=== PATIENT | male | born 1955 | race Caucasian/White ===

== ENCOUNTER 2017-02-03 22:33 | Emergency (ER) | payer OTHER ==
[~2017-02-03] VITALS: Ht 175.3 cm; Wt 70.0 kg
[~2017-02-03 22:33] MED LIST: GABA300C5 PO
[2017-02-03] MEDS ORDERED: SODIUM CHLORIDE 0.9% FLUSH 5 ML FLUSH IVF PRN (22:45)
[2017-02-03 22:47] VITALS: BP 147/81; PULSE 81; RESP 18; TEMP 97.6; O2SAT 99
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
[2017-02-03 23:09] LABS: BASOPHIL # 0.1 TH/MM3 (0-0.2); BASOPHIL % 0.8 % (0.0-2.0); EOSINOPHIL % 0.6 % (0.0-4.0); HEMATOCRIT 41.1 % (39.0-51.0); HEMO FLAGS DIFF FINAL; LYMPH % 43.9 % (9.0-44.0); LYMPHOCYTE # 2.9 TH/MM3 (1.0-4.8); MEAN CELL VOLUME 83.4 FL (80.0-100.0); MEAN CORPUSCULAR HEMOGLOBIN 28.3 PG (27.0-34.0); NEUT % 45.7 % (16.0-70.0); PLATELET COUNT 269 TH/MM3 (150-450); RED BLOOD COUNT 4.93 MIL/MM3 (4.50-5.90); RED CELL DISTRIBUTION WIDTH 17.1 % (11.6-17.2); WHITE BLOOD COUNT 6.6 TH/MM3 (4.0-11.0)
[2017-02-03 23:22] LABS: APTT (PATIENT) 26.3 SEC (24.3-30.1)
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
[2017-02-03 23:34] LABS: BICARBONATE 27.8 MEQ/L (21.0-32.0); POTASSIUM 4.2 MEQ/L (3.5-5.1)
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
[2017-02-04 00:54] VITALS: BP 131/84; PULSE 91; RESP 18; O2SAT 99
== END 2017-02-04 01:41 | disposition home or self-care (01) ==
LOC: NEPC 22:33
DX: S00.81XA Abrasion of other part of head, initial encounter (principal); F10.129 Alcohol abuse with intoxication, unspecified; J44.9 Chronic obstructive pulmonary disease, unspecified; I10 Essential (primary) hypertension; Y04.2XXA Assault by strike against or bumped into by another person, initial encounter; W10.9XXA Fall (on) (from) unspecified stairs and steps, initial encounter; Y93.9 Activity, unspecified; Y92.9 Unspecified place or not applicable; Z72.0 Tobacco use; Y90.8 Blood alcohol level of 240 mg/100 ml or more
CPT/HCPCS: 70450; 71010; 72125; 80048; 80307; 85025; 85610; 85730; 86850; 86900; 86901

== ENCOUNTER 2017-05-10 01:44 | Emergency (ER) | payer SELFPAY ==
[~2017-05-10] VITALS: Ht 175.3 cm; Wt 60.0 kg
[2017-05-10 01:47] VITALS: BP 160/88; PULSE 89; RESP 18; TEMP 98; O2SAT 97
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
[2017-05-10 02:14] LABS: BASOPHIL # 0.1 TH/MM3 (0-0.2); BASOPHIL % 1.1 % (0.0-2.0); EOSINOPHIL # 0.1 TH/MM3 (0-0.4); EOSINOPHIL % 1.5 % (0.0-4.0); HEMATOCRIT 35.5 % (39.0-51.0); HEMO FLAGS DIFF FINAL; LYMPHOCYTE # 2.3 TH/MM3 (1.0-4.8); MEAN CELL VOLUME 83.9 FL (80.0-100.0); MEAN CORPUSCULAR HEMOGLOBIN 28.1 PG (27.0-34.0); MEAN CORPUSCULAR HGB CONC 33.5 % (32.0-36.0); MONO % 9.3 % (0.0-8.0); NEUT % 64.1 % (16.0-70.0); PLATELET COUNT 231 TH/MM3 (150-450); RED BLOOD COUNT 4.24 MIL/MM3 (4.50-5.90); RED CELL DISTRIBUTION WIDTH 15.6 % (11.6-17.2); WHITE BLOOD COUNT 9.4 TH/MM3 (4.0-11.0)
--- NOTE | 2017-05-10 02:35 | RADRPT ---
EXAM DATE/TIME: 05/10/2017 02:21 [facility] COMPARISON: No previous studies available for comparison. INDICATIONS : Nontraumatic right foot pain. MEDICAL HISTORY : None. SURGICAL HISTORY : None. ENCOUNTER: Initial ACUITY: 1 day PAIN SCORE: 10/10 LOCATION: Right foot FINDINGS: No fracture or subluxation seen of the right foot. No bone destruction seen. Mild talonavicular, navicular/cuneiform, Lisfranc and great toe metatarsophalangeal and interphalange al joint osteoarthritis noted. CONCLUSION: Mild medial sided degenerative changes as above. No fracture or subluxation of the right foot or othe r acute bony abnormality. Anthony Park MD on May 10, 2017 at 2:32 Board Certified Radiologist. This report was verified electronically.
[2017-05-10 02:36] LABS: BICARBONATE 29.1 MEQ/L (21.0-32.0); POTASSIUM 4.1 MEQ/L (3.5-5.1)
[2017-05-10] MEDS ORDERED: BACT800T5 PO (02:51)
[2017-05-10] MEDS ORDERED: TRAM50TA PO (02:51)
== END 2017-05-10 03:39 | disposition home or self-care (01) ==
LOC: NEPC 01:44
DX: M19.071 Primary osteoarthritis, right ankle and foot (principal); L03.316 Cellulitis of umbilicus; M25.532 Pain in left wrist; J44.9 Chronic obstructive pulmonary disease, unspecified; I10 Essential (primary) hypertension; F17.210 Nicotine dependence, cigarettes, uncomplicated
CPT/HCPCS: 73620; 80048; 85025; 99284; E0113

== ENCOUNTER 2017-10-22 06:31 | Emergency (ER) | payer SELFPAY ==
[~2017-10-22] VITALS: Ht 175.3 cm; Wt 63.6 kg
[~2017-10-22 06:31] MED LIST changes: +BACT800T5 PO; -GABA300C5 PO; +TRAM50TA PO
[2017-10-22 06:38] VITALS: BP 155/85; PULSE 110; RESP 24; TEMP 98.1; O2SAT 98
[2017-10-22] MEDS ORDERED: SODIUM CHLORIDE 0.9% FLUSH 10 ML FLUSH IVF PRN (07:15)
[2017-10-22] MEDS ORDERED: methylPREDNISolone SOD SUCC 125 MG/2 ML VIAL IV PUSH ONE (07:15)
[2017-10-22 07:20] VITALS: PULSE 98; RESP 22; O2SAT 98
--- NOTE | 2017-10-22 07:21 | PD ---
HPI Chief Complaint: Respiratory Distress Time Seen by Provider: 06:59 Travel History International Travel<30 days: No Contact w/Intl Traveler<30days: No Traveled to known affect area: No History of Present Illness HPI 62 yo M c/o shortness of breath with cough for approximately 3-4 days. He reports a history of COPD. Noncompliance with inhalers reported due to cost although he does have prescriptions. He reports chronic orthopnea no worse lately. He has no fever or chest pain. + Cough occasionally production. Pt has a chronic cough. Dyspnea on exertion reported typical for a COPD exacerbation. He has been able to use his friends' inhalers with some benefit. PFSH Past Medical History COPD: Yes Diminished Hearing: No Hypertension: Yes Medical other: Yes (ARTHRITIS) Immunizations Current: Yes Past Surgical History Surgical History: No Previous Surgery Social History Alcohol Use: Yes (OCCASSIONALLY) Tobacco Use: Yes (/ PPD) Substance Use: Yes (marijuana) Allergies-Medications (Allergen,Severity, Reaction): Coded Allergies: No Known Allergies (Verified Adverse Reaction, Unknown, 10/22/17) Reported Meds & Prescriptions Reported Meds & Active Scripts Active Review of Systems Except as stated in HPI: all other systems reviewed are Neg General / Constitutional: No: Fever Respiratory: Positive: Shortness of Breath Physical Exam Narrative GENERAL: 62 yo M, thin emphysematous habitus, speaking sentences SKIN: Warm and dry. There is a lesion towards the midline of the thoracic portion of the back with irregular margins variations in color approximately 1 cm in greatest diameter concerning for skin cancer. This was discussed with the patient who verbalized knowledge of it. The necessity of outpatient follow- up was discussed as well and the patient verbalized understanding. HEAD: Atraumatic. Normocephalic. EYES: Pupils equal and round. No scleral icterus. No injection or drainage. ENT: No nasal bleeding or discharge. Mucous membranes pink and moist. NECK: Trachea midline. No JVD. CARDIOVASCULAR: Tachycardia. Regular rhythm. RESPIRATORY: Minimal tachypnea. Lungs clear. GASTROINTESTINAL: Abdomen soft, non-tender, nondistended. Hepatic and splenic margins not palpable. MUSCULOSKELETAL: No edema. No gross deformity. NEUROLOGICAL: Awake and alert. No obvious cranial nerve deficits. Motor grossly within normal limits. Five out of 5 muscle strength in the arms and legs. Normal speech. PSYCHIATRIC: Appropriate mood and affect; insight and judgment normal. Data Data Last Documented VS Vital Signs Date Time Temp Pulse Resp B/P (MAP) Pulse Ox O2 Delivery O2 Flow Rate FiO2 10/22/17 09:16 20 91 Room Air 10/22/17 07:24 1.50 10/22/17 07:20 98 10/22/17 06:38 98.1 155/85 (108) VS reviewed Orders Orders Complete Blood Count With Diff (10/22/17 07:03) Basic Metabolic Panel (Bmp) (10/22/17 07:03) B-Type Natriuretic Peptide (10/22/17 07:03) Iv Access Insert/Monitor (10/22/17 07:03) Ecg Monitoring (10/22/17 07:03) Oximetry (10/22/17 07:03) Oxygen Administration (10/22/17 07:03) Chest, Single Ap (10/22/17 07:03) Sodium Chloride 0.9% Flush (Ns Flush) (10/22/17 07:15) Methylprednisolone So Succ Inj (Solumedr (10/22/17 07:15) Albuterol-Ipratropium Neb (Duoneb Neb) (10/22/17 07:15) Albuterol Hfa Inh (Proair Hfa Inh) (10/22/17 09:45) Ed Discharge Order (10/22/17 09:39) Labs Laboratory Tests Test 10/22/17 07:18 White Blood Count 12.9 TH/MM3 Red Blood Count 4.96 MIL/MM3 Hemoglobin 14.1 GM/DL Hematocrit 42.1 % Mean Corpuscular Volume 84.8 FL Mean Corpuscular Hemoglobin 28.5 PG Mean Corpuscular Hemoglobin Concent 33.6 % Red Cell Distribution Width 16.6 % Platelet Count 186 TH/MM3 Mean Platelet Volume 9.5 FL Neutrophils (%) (Auto) 62.0 % Lymphocytes (%) (Auto) 25.8 % Monocytes (%) (Auto) 9.3 % Eosinophils (%) (Auto) 2.3 % Basophils (%) (Auto) 0.6 % Neutrophils # (Auto) 8.0 TH/MM3 Lymphocytes # (Auto) 3.3 TH/MM3 Monocytes # (Auto) 1.2 TH/MM3 Eosinophils # (Auto) 0.3 TH/MM3 Basophils # (Auto) 0.1 TH/MM3 CBC Comment DIFF FINAL Differential Comment Blood Urea Nitrogen 10 MG/DL Creatinine 0.85 MG/DL Random Glucose 110 MG/DL Calcium Level 9.0 MG/DL Sodium Level 140 MEQ/L Potassium Level 3.5 MEQ/L Chloride Level 103 MEQ/L Carbon Dioxide Level 28.5 MEQ/L Anion Gap 9 MEQ/L Estimat Glomerular Filtration Rate 91 ML/MIN B-Type Natriuretic Peptide 8 PG/ML MDM Medical Decision Making Medical Screen Exam Complete: Yes Emergency Medical Condition: Yes Medical Record Reviewed: Yes Differential Diagnosis PNA, COPD, CHF, anemia, asthma, renal failure Narrative Course CXR: emphysema changes CBC & BMP Diagram 10/22/17 07:18 Calcium Level 9.0 Last 24 hours Impressions Chest X-Ray 10/22/17 0703 Signed Impressions: Service Date/Time: Sunday, October 22, 2017 07:12 - CONCLUSION: Normal examination except for stable blunting of the right costophrenic angle. Dashawn Roman MD Patient ambulated around the pod on room air with an O2 sat of 91% room air. He reiterates is concerned Cipro pill fills prescriptions however is of the opinion that if he were to leave with an albuterol inhaler he would be able to go home. Overall seems that today's presentation is most in keeping with a COPD exacerbation. Patient is aware of his back mole and verbalized understanding to follow up for further evaluation. Diagnosis Primary Impression: Atypical mole Additional Impression: COPD exacerbation Referrals: [facility] 2 days Additional Instructions: BE SURE TO FOLLOW UP WITH [facility] OR A PRIMARY CARE PROVIDER TO EVALUATE YOUR BACK MOLE. Med/Other Pt SpecificInfo: Prescription(s) given Scripts Prednisone (Prednisone) 20 Mg Tab 40 MG PO DAILY for 4 Days, #8 TAB 0 Refills Take 40 mg (2 tablets) daily for 5 days Prov: Nitin Mcneill MD 10/22/17 Albuterol 6.7 GM Inh (Proventil Hfa 6.7 GM Inh) 90 Mcg/Act Aer 2 PUFF INH Q6H Y for SHORTNESS OF BREATH, #1 INHALER 0 Refills Prov: Nitin Mcneill MD 10/22/17 Disposition: 01 DISCHARGE HOME Condition: Stable Nitin Mcneill MD Oct 22, 2017 07:21
[2017-10-22 07:24] VITALS: O2SAT 97
[2017-10-22] MEDS: RESP: ALBUTEROL 2.5 MG/IPRATROPIUM 0.5 MG NEB (SCH) INH ×2 (07:24→07:25)
[2017-10-22 07:25] LABS: BASOPHIL # 0.1 TH/MM3 (0-0.2); BASOPHIL % 0.6 % (0.0-2.0); EOSINOPHIL # 0.3 TH/MM3 (0-0.4); EOSINOPHIL % 2.3 % (0.0-4.0); HEMATOCRIT 42.1 % (39.0-51.0); LYMPH % 25.8 % (9.0-44.0); LYMPHOCYTE # 3.3 TH/MM3 (1.0-4.8); MEAN CELL VOLUME 84.8 FL (80.0-100.0); MEAN CORPUSCULAR HEMOGLOBIN 28.5 PG (27.0-34.0); MEAN CORPUSCULAR HGB CONC 33.6 % (32.0-36.0); MONO % 9.3 % (0.0-8.0); PLATELET COUNT 186 TH/MM3 (150-450); RED BLOOD COUNT 4.96 MIL/MM3 (4.50-5.90); RED CELL DISTRIBUTION WIDTH 16.6 % (11.6-17.2); WHITE BLOOD COUNT 12.9 TH/MM3 (4.0-11.0)
[2017-10-22 07:27] LABS: HEMO FLAGS DIFF FINAL
[2017-10-22 07:44] LABS: BICARBONATE 28.5 MEQ/L (21.0-32.0); POTASSIUM 3.5 MEQ/L (3.5-5.1)
--- NOTE | 2017-10-22 07:49 | RADRPT ---
EXAM DATE/TIME: 10/22/2017 07:12 [facility] COMPARISON: CHEST SINGLE AP, February 03, 2017, 22:48. INDICATIONS : Shortness of breath. MEDICAL HISTORY : Hypertension. Chronic obstructive pulmonary disease. SURGICAL HISTORY : None. ENCOUNTER: Initial ACUITY: 4 - 6 days PAIN SCORE: 0/10 LOCATION: Bilateral chest FINDINGS: A single view of the chest demonstrates the lungs to be symmetrically aerated without evidence of mas s, infiltrate or effusion is except for chronic blunting of the right costophrenic angle. The cardio mediastinal contours are unremarkable. Osseous structures are intact with a healed left clavicular f racture. CONCLUSION: Normal examination except for stable blunting of the right costophrenic angle. Dashawn Roman MD on October 22, 2017 at 7:47 Board Certified Radiologist. This report was verified electronically.
[2017-10-22 09:16] VITALS: RESP 20; O2SAT 91
[2017-10-22] MEDS ORDERED: PRED20 PO (09:42)
[2017-10-22] MEDS ORDERED: ALBU6.7H INH (09:42)
[2017-10-22] MEDS ORDERED: ALBUTEROL SULFATE 90 MCG/ACT HFA 8 GM INHALER INH ONE (09:45)
== END 2017-10-22 10:05 | disposition home or self-care (01) ==
LOC: NEPE 06:31
DX: J44.1 Chronic obstructive pulmonary disease with (acute) exacerbation (principal); D22.5 Melanocytic nevi of trunk; R00.0 Tachycardia, unspecified; I10 Essential (primary) hypertension; M19.90 Unspecified osteoarthritis, unspecified site; F17.200 Nicotine dependence, unspecified, uncomplicated
CPT/HCPCS: 71010; 80048; 83880; 85025; 94640; 94664; 96374; 99285; J2930